=== PATIENT | female | born 1985 | race Caucasian/White ===

== ENCOUNTER 2024-11-09 10:15 | Emergency (ER) | payer OTHER ==
[~2024-11-09] VITALS: Ht 165.1 cm; Wt 68.0 kg
[2024-11-09 10:21] VITALS: O2SAT 96
[2024-11-09 10:54] LABS: CLARITY URINE CLOUDY (CLEAR); COLOR URINE YELLOW (YELLOW); GLUCOSE URINE NEGATIVE (NEGATIVE); KETONES URINE TRACE (NEGATIVE); LEUKOCYTE ESTERASE URINE 2+ (NEGATIVE); NITRITE URINE NEGATIVE (NEGATIVE); OCCULT BLOOD URINE TRACE (NEGATIVE); PH URINE 5.5 (4.5-8.0); PROTEIN URINE NEGATIVE (NEGATIVE); SPECIFIC GRAVITY URINE 1.028 (1.005-1.030)
[2024-11-09 11:07] LABS: BASOPHILS % 1.2 % (0.0-2.0); EOSINOPHILS % 4.3 % (0.0-5.0); LYMPHOCYTES % 26.3 % (20.0-50.0); MEAN CORPUSCULAR HEMOGLOBIN 26.6 pg (28.0-32.0); MEAN CORPUSCULAR HGB CONC 32.4 g/dL (31.0-37.0); MEAN CORPUSCULAR VOLUME 82.1 fL (81.0-99.0); MONOCYTES % 6.7 % (2.0-8.0); NEUTROPHILS % 61.5 % (40.0-76.0); PLATELET 319 x1000/uL (130-400); RED CELL DISTRIBUTION WIDTH 13.6 % (11.6-14.6); WHITE BLOOD COUNT 7.5 x1000/uL (4.5-11.0)
[2024-11-09 11:15] LABS: MUCUS URINE 1+ /lpf (< = 2+); SQUAMOUS EPITHELIAL CELL URINE 3+ /lpf (RARE/1+)
[2024-11-09] MEDS: LORAZEPAM 1MG TABLET PO ONE (11:15)
[2024-11-09 11:16] LABS: BACTERIA URINE 1+
[2024-11-09 11:18] LABS: CHLORIDE 102 mEq/L (98-107); POTASSIUM 3.4 mEq/L (3.5-5.1); SODIUM 137 mEq/L (136-145)
[2024-11-09 11:19] LABS: CARBON DIOXIDE 27 mEq/L (21-32)
[2024-11-09 11:20] LABS: CALCIUM 8.8 mg/dL (8.7-10.4)
[2024-11-09 11:22] LABS: *AMPHETAMINES SCREEN URINE NEGATIVE (NEGATIVE); *BARBITURATES SCREEN URINE NEGATIVE (NEGATIVE); *BENZODIAZEPINES SCREEN URINE NEGATIVE (NEGATIVE); *COCAINE SCREEN URINE NEGATIVE (NEGATIVE)
[2024-11-09 11:23] LABS: CANNABINOID URINE SCREEN NEGATIVE (NEGATIVE); ECSTASY MDMA SCREEN URINE NEGATIVE (NEGATIVE); METHADONE URINE SCREEN NEGATIVE (NEGATIVE); OPIATES URINE SCREEN NEGATIVE (NEGATIVE); PHENCYCLIDINE URINE SCREEN NEGATIVE (NEGATIVE)
[2024-11-09 11:24] LABS: CREATININE 0.7 mg/dL (0.6-1.0); GLUCOSE 109 mg/dL (70-105)
[2024-11-09 11:25] LABS: ETHANOL BLOOD < 10 mg/dL (<10); UREA NITROGEN BLOOD 11 mg/dL (9-23)
[2024-11-09 11:26] LABS: ACETAMINOPHEN < 2 ug/mL (10-30); ALANINE AMINOTRANSFERASE 14 IU/L (10-49); ALBUMIN 4.2 g/dL (3.2-4.8); ASPARTATE AMINOTRANSFERASE 14 IU/L (<34)
[2024-11-09 11:27] LABS: BILIRUBIN TOTAL 0.3 mg/dL (0.1-1.0); PROTEIN TOTAL 7.5 g/dL (6.0-8.3)
[2024-11-09 11:32] LABS: TROPONIN I HIGH SENSITIVITY < 4 ng/L (3.0-34)
[2024-11-09] MEDS: NITROFURANTOIN 100MG M/M CAPSULE PO SCH (12:15)
[2024-11-09] MEDS ORDERED: NITROFURANTOIN 100MG M/M CAPSULE PO SCH (21:00)
[2024-11-09 21:48] LABS: HCG SCREEN NEGATIVE
[2024-11-10] MEDS ORDERED: LORAZEPAM 2MG/ML INJ IM ONE (00:30)
[2024-11-10] MEDS: LORAZEPAM 2MG/ML UD SYRINGE IM NR (00:32)
[2024-11-10 17:45] VITALS: BP 138/78; PULSE 98; RESP 16; TEMP 37; O2SAT 99
== END 2024-11-10 17:41 ==
LOC: ER 10:15
DX: R45.851 Suicidal ideations (principal); R07.89 Other chest pain; R82.71 Bacteriuria; F31.9 Bipolar disorder, unspecified; F20.9 Schizophrenia, unspecified; Z20.822 Contact with and (suspected) exposure to COVID-19; Z79.899 Other long term (current) drug therapy
CPT/HCPCS: 80053; 80305; 81003; 81025; 80307; 80329; 80320; 84703; 83880; 85025; 84484; 36415; 71045; 93005; 99285; 87426; 96372; J2060; Z7610 ×2; G0480